=== PATIENT | female | born 1990 | race Caucasian/White ===

== ENCOUNTER 2018-08-18 02:06 | Emergency (ER) | payer MEDICAID ==
[~2018-08-18 02:06] MED LIST: NORCO 325 MG-51 TAB PO
[2018-08-18 02:08] VITALS: BP 125/90
[2018-08-18 02:57] LABS: EOS % 0.8 % (1.0-5.0); HEMOGLOBIN 12.7 g/dL (12.5-16.0); LYMPH# 1.1 (1.50-4.00); MEAN CELL VOLUME 82 fl (78-100); MEAN CORPUSCULAR HEMOGLOBIN 27 pg (27-31); MEAN CORPUSCULAR HGB CONC 33 g/dL (33-37); MONO # 0.4 (0.20-0.80); NEU # 3.4 (1.40-6.50); PLATELET COUNT 305 K/mm3 (130-400); RED BLOOD COUNT 4.77 M/mm3 (4.10-5.30); RED CELL DISTRIBUTION WIDTH 14.5 % (11.5-14.5)
[2018-08-18 03:08] LABS: ALBUMIN 4.1 g/dL (3.5-5.0); POTASSIUM 3.8 mmol/L (3.5-5.1); SODIUM 144 mmol/L (136-145)
[2018-08-18 03:09] LABS: CALCIUM 8.7 mg/dL (8.3-10.5)
[2018-08-18 03:10] LABS: GLUCOSE 94 mg/dL (65-105); TOTAL PROTEIN 6.9 g/dL (6.4-8.3)
[2018-08-18 03:11] LABS: CARBON DIOXIDE 21 mmol/L (22-29)
[2018-08-18 03:12] LABS: TOTAL BILIRUBIN 0.4 mg/dL (0.2-1.2)
[2018-08-18 03:13] LABS: ALCOHOL IN-HOUSE 149 mg/dL (<10)
[2018-08-18 03:16] LABS: AST-SGOT 16 U/L (5-34)
[2018-08-18 03:17] LABS: ALT/SGPT 17 U/L (0-55)
[2018-08-18 03:18] LABS: ACETAMINOPHEN < 1 ug/mL
[2018-08-18] MEDS ORDERED: PENICILLIN-VK500 M1 PO (06:40)
[2018-08-18] MEDS ORDERED: NAPROSYN500 M1 PO (06:42)
== END 2018-08-18 07:00 | disposition home or self-care (01) ==
LOC: ED 02:06
PROVIDERS: Nurse Practitioner
DX: F39 Unspecified mood [affective] disorder (principal); F17.210 Nicotine dependence, cigarettes, uncomplicated; Z98.51 Tubal ligation status; Z53.21 Procedure and treatment not carried out due to patient leaving prior to being seen by health care provider

== ENCOUNTER → 2020-03-09 | Outpatient (CLI) | payer MEDICAID ==
[~2020-03-09] MED LIST changes: +NAPROSYN500 M1 PO; +PENICILLIN-VK500 M1 PO
== END ==
LOC: RAD 10:37
DX: M47.816 Spondylosis without myelopathy or radiculopathy, lumbar region (principal); M43.16 Spondylolisthesis, lumbar region